=== PATIENT | female | born 1945 | race Caucasian/White ===

== ENCOUNTER 2024-10-21 12:07 | Inpatient (IN) | payer MEDICARE, OTHER ==
[~2024-10-21] VITALS: Ht 157.5 cm; Wt 113.4 kg
[2024-10-21] MEDS ORDERED: ASCO500C18 PO (15:12)
[2024-10-21] MEDS ORDERED: SODI88SP18 EA NOSTRIL (15:12)
[2024-10-21] MEDS ORDERED: MULT-213 PO (15:12)
[2024-10-21] MEDS ORDERED: HYDR50TA4 PO (15:12)
[2024-10-21] MEDS ORDERED: BISA10SU61 RC (15:12)
[2024-10-21] MEDS ORDERED: DOCU-141 PO (15:12)
[2024-10-21] MEDS ORDERED: ALLO100T PO (15:12)
[2024-10-21] MEDS ORDERED: NA P133E RC (15:12)
[2024-10-21] MEDS ORDERED: DILT180T11 PO (15:12)
[2024-10-21] MEDS ORDERED: MAGN400O6 PO (15:12)
[2024-10-21] MEDS ORDERED: BUSP5TAB3 PO (15:12)
[2024-10-21] MEDS ORDERED: ASPI81TA31 PO (15:12)
[2024-10-21] MEDS ORDERED: IPRA3AMP23 IH (15:12)
[2024-10-21] MEDS ORDERED: MAGN200T9 PO (15:12)
[2024-10-21] MEDS ORDERED: BUPR100T6 PO (15:12)
[2024-10-21] MEDS ORDERED: ACET325C7 PO (15:12)
[2024-10-21] MEDS ORDERED: OXYC5CAP18 PO (15:12)
[2024-10-21] MEDS ORDERED: REMEDY ESSENTIAL ZINC PASTE 113 GM TP PRN (16:15)
[2024-10-21] MEDS ORDERED: MAGNESIUM HYDROXIDE 30 ML LIQUID UDC PO PRN (16:15)
[2024-10-21] MEDS ORDERED: ONDANSETRON 4 MG/2 ML VIAL IV PRN (16:15)
[2024-10-21] MEDS ORDERED: ACETAMINOPHEN/CODEINE 300-30 MG TABLET PO PRN (16:15)
[2024-10-21 16:30] VITALS: BP 137/58; TEMP 97.7; O2SAT 95
[2024-10-21] MEDS: METHOCARBAMOL 500 MG TABLET PO SCH (17:00)
[2024-10-21 19:10] VITALS: BP 125/61; TEMP 98.4; O2SAT 92
[2024-10-21] MEDS ORDERED: ASPI-612 PO (19:22)
[2024-10-21] MEDS ORDERED: ASPI-869 PO (19:22)
[2024-10-21] MEDS ORDERED: METHOCARBAMOL 500 MG TABLET PO PRN (20:00)
[2024-10-21] MEDS ORDERED: FLEET ENEMA 133 ML BOTTLE RC PRN (20:00)
[2024-10-21] MEDS ORDERED: NORMAL SALINE NASAL 45 ML BOTTLE NS PRN (20:00)
[2024-10-21] MEDS ORDERED: BISACODYL 10 MG SUPP.RECT RC PRN (20:00)
[2024-10-21] MEDS: ENOXAPARIN SODIUM 40 MG/0.4 ML DISP.SYRIN SQ ONE (20:11)
[2024-10-21] MEDS: DOCUSATE SODIUM 100 MG CAPSULE PO SCH (21:16)
[2024-10-22] MEDS: CALCIUM CARBONATE 500 MG TAB.CHEW PO PRN (04:12)
[2024-10-22] MEDS ORDERED: NORMAL SALINE NASAL 45 ML BOTTLE NS PRN (06:18)
[2024-10-22] MEDS: PANTOPRAZOLE SODIUM 40 MG TABLET.DR PO SCH (06:23)
[2024-10-22 06:39] VITALS: BP 129/59; TEMP 98.8; O2SAT 91
[2024-10-22 06:51] LABS: PLATELET COUNT (AUTO) 131 K/uL (152-348); RED BLOOD CELL COUNT(AUTO) 4.80 MIL/uL (4.06-5.63); RED CELL DISTRIBUTION WIDTH 14.4 % (12.1-16.2); WHITE BLOOD COUNT (AUTO) 11.0 K/uL (3.6-10.2)
[2024-10-22 07:01] LABS: ASPARTATE AMINOTRANSFERASE 16 U/L (15-37); CREATININE 0.6 mg/dL (0.6-1.3); SODIUM SERUM 141 mmol/L (136-145); TOTAL PROTEIN, SERUM 6.2 g/dL (6.4-8.2); UREA NITROGEN, BLOOD 14 mg/dL (7-18)
[2024-10-22] MEDS: ASCORBIC ACID 500 MG TABLET PO SCH (08:21)
[2024-10-22] MEDS: MULTIVITAMINS,THERAPEUTIC TABLET PO SCH (08:21)
[2024-10-22] MEDS: ASPIRIN EC 325 MG TABLET.DR PO SCH (08:21)
[2024-10-22] MEDS: buPROPion SR 100 MG TABLET.SA PO SCH (08:21)
[2024-10-22] MEDS: ALLOPURINOL 100 MG TABLET PO SCH (08:21)
[2024-10-22] MEDS: ENOXAPARIN SODIUM 40 MG/0.4 ML DISP.SYRIN SQ SCH (08:29)
[2024-10-22] MEDS ORDERED: Medication Not On Formulary EA (Multivitamins W-Minerals (Multivitamin With Minerals) 1 PO SCH (09:00)
[2024-10-22 15:50] VITALS: BP 120/62; TEMP 98.8; O2SAT 94
[2024-10-22] MEDS: ACETAMINOPHEN 325 MG TABLET PO PRN (18:10)
[2024-10-22 19:00] VITALS: BP 129/73; TEMP 97.9; O2SAT 94
[2024-10-23 06:00] VITALS: BP 146/76; TEMP 97.6; O2SAT 96
[2024-10-23 09:49] LABS: PLATELET COUNT (AUTO) 143 K/uL (179-408); RED BLOOD CELL COUNT(AUTO) 5.03 MIL/uL (3.63-4.92); RED CELL DISTRIBUTION WIDTH 14.4 % (12.3-17.7); WHITE BLOOD COUNT (AUTO) 7.3 K/uL (3.8-11.8)
[2024-10-23 11:44] VITALS: BP 125/62; TEMP 97.6; O2SAT 94
[2024-10-23 12:10] LABS: CREATININE 0.6 mg/dL (0.6-1.3); SODIUM SERUM 139 mmol/L (136-145); UREA NITROGEN, BLOOD 14 mg/dL (7-18)
[2024-10-23 12:21] LABS: *BILIRUBIN,URIN NEGATIVE (NEGATIVE); *BLOOD, URINE 2+ (NEGATIVE); *CLARITY,URINE CLEAR (CLEAR); *COLOR,URINE YELLOW (YELLOW); *KETONES,URINE NEGATIVE (NEGATIVE); *PROTEIN,URINE TRACE (NEGATIVE); *UROBILINOGEN,URINE 0.2 E.U./dl (NORMAL); LEUKOCYTE ESTERASE ,URINE 3+ (NEGATIVE); NITRITE, URINE POSITIVE (NEGATIVE); UGLUCOSE NEGATIVE (NEGATIVE)
[2024-10-23 14:09] LABS: SQUAMOUS EPITHELIAL CELL,UR FEW /HPF (NONE SEEN)
[2024-10-23] MEDS: NYSTATIN POWDER 15 GM BOTTLE TOP SCH (14:31)
[2024-10-23 16:30] VITALS: BP 128/62; TEMP 98.8; O2SAT 94
[2024-10-23 20:20] VITALS: BP 141/66; TEMP 97.8; O2SAT 93
[2024-10-24 04:28] VITALS: BP 156/84; TEMP 98; O2SAT 95
[2024-10-24 08:51] LABS: PLATELET COUNT (AUTO) 139 K/uL (179-408); RED BLOOD CELL COUNT(AUTO) 5.34 MIL/uL (3.63-4.92); RED CELL DISTRIBUTION WIDTH 14.5 % (12.3-17.7); WHITE BLOOD COUNT (AUTO) 7.1 K/uL (3.8-11.8)
[2024-10-24 08:59] LABS: CREATININE 0.6 mg/dL (0.6-1.3); SODIUM SERUM 140 mmol/L (136-145); UREA NITROGEN, BLOOD 14 mg/dL (7-18)
[2024-10-24] MEDS: CIPROFLOXACIN IV 400 MG in PREMIXED 1 EACH IV SCH (11:11)
[2024-10-24 15:45] VITALS: BP 126/59; TEMP 97.7; O2SAT 94
[2024-10-24 21:24] VITALS: BP 118/54; TEMP 98.2; O2SAT 92
[2024-10-25 06:47] LABS: PLATELET COUNT (AUTO) 170 K/uL (179-408); RED BLOOD CELL COUNT(AUTO) 4.82 MIL/uL (3.63-4.92); RED CELL DISTRIBUTION WIDTH 13.9 % (12.3-17.7); WHITE BLOOD COUNT (AUTO) 7.4 K/uL (3.8-11.8)
[2024-10-25 07:03] LABS: CREATININE 0.5 mg/dL (0.6-1.3); SODIUM SERUM 141 mmol/L (136-145); UREA NITROGEN, BLOOD 15 mg/dL (7-18)
[2024-10-25] MEDS ORDERED: CIPROFLOXACIN HCL 250 MG TABLET PO SCH (09:00)
[2024-10-25] MEDS ORDERED: NITR100C6 PO (09:09)
[2024-10-25] MEDS: NITROFURANTOIN/NITROFURAN MAC 100 MG CAPSULE PO SCH (09:54)
[2024-10-25 12:00] VITALS: BP 126/60; TEMP 98.1; O2SAT 96
[2024-10-25 16:00] VITALS: BP 134/58; TEMP 98.5; O2SAT 95
== END 2024-10-25 19:05 | DRG 554 ==
LOC: ER 12:07 → MEDSURG3 14:09 → EDSEX 14:09
PROVIDERS: ADMIT Nurse Practitioner Family; ATTEND Nurse Practitioner Family
DX: M17.0 Bilateral primary osteoarthritis of knee (principal); D68.59 Other primary thrombophilia; N39.0 Urinary tract infection, site not specified; Z68.42 Body mass index [BMI] 45.0-49.9, adult; I48.91 Unspecified atrial fibrillation; I11.0 Hypertensive heart disease with heart failure; E78.5 Hyperlipidemia, unspecified; E66.01 Morbid (severe) obesity due to excess calories; G47.33 Obstructive sleep apnea (adult) (pediatric); Z88.1 Allergy status to other antibiotic agents; Z88.0 Allergy status to penicillin; Z88.8 Allergy status to other drugs, medicaments and biological substances; I25.10 Atherosclerotic heart disease of native coronary artery without angina pectoris; I50.9 Heart failure, unspecified; F41.9 Anxiety disorder, unspecified; E03.9 Hypothyroidism, unspecified; R26.81 Unsteadiness on feet; F32.A Depression, unspecified; Z91.81 History of falling; D50.9 Iron deficiency anemia, unspecified
CPT/HCPCS: 36415; 71045; 73560; 73700; 83735; 84100; 84443; 84484; 84550; 85025; 86140; 87077; 87086; 93005; 93307; A4606; A4663; G0378; J0744; J1650; J7042; J7070; J8499